=== PATIENT | female | born 1935 | race Caucasian/White ===

== ENCOUNTER 2017-11-15 08:43 | Day surgery (SDC) | payer MEDICARE, BC ==
[2017-11-15] VITALS (17 sets, daily range): BP systolic 90–180; BP diastolic 35–124
[~2017-11-15] VITALS: Ht 170.2 cm; Wt 95.5 kg
[2017-11-15] MEDS ORDERED: normal saline 1000ml 1,000 ML IV PRN (09:10)
[2017-11-15] MEDS ORDERED: ondansetron/PF 4mg/2ml inj IV PRN (09:15)
[2017-11-15] MEDS ORDERED: LOSA1TAB36 PO (09:21)
[2017-11-15] MEDS ORDERED: LEVO75TA7 PO (09:21)
[2017-11-15] MEDS ORDERED: ACET-2119 PO (09:21)
[2017-11-15 09:46] LABS: BASOPHILS % (AUTO) 0.3 % (0-1); EOSINOPHILS # (AUTO) 0.2 X10'3 (0-0.9); EOSINOPHILS % (AUTO) 1.7 % (0-6); HEMATOCRIT 40.2 % (35.0-45.0); HEMOGLOBIN 13.5 g/dl (12.0-16.0); LYMPHOCYTES # (AUTO) 1.1 X10'3 (1.1-4.8); LYMPHOCYTES % (AUTO) 9.2 % (21-51); MEAN CORPUSCULAR HEMOGLOBIN 30.2 PG (27.0-31.0); MEAN CORPUSCULAR HGB CONC 33.5 % (33.0-36.5); MEAN CORPUSCULAR VOLUME 90.3 FL (78-98); MEAN PLATELET VOLUME 8.3 FL (7.4-10.4); MONOCYTES # (AUTO) 0.9 X10'3 (0-0.9); MONOCYTES % (AUTO) 7.8 % (2-12); NEUTROPHILS # (AUTO) 9.3 X10'3 (1.8-7.7); PLATELET COUNT 407 X10'3 (140-440); RED BLOOD COUNT 4.46 X10'6 (4.20-5.60); WHITE BLOOD COUNT 11.5 X10'3 (4.5-11.0)
[2017-11-15] MEDS ORDERED: fentaNYL/PF 50MCG/1 ML 2ML syringe ONE (10:29)
[2017-11-15] MEDS ORDERED: midazolam 2 mg/2 ml injection ONE (10:29)
[2017-11-15] MEDS ORDERED: ibuprofen tablet 400 MG TABLET PO ONE (13:50)
== END 2017-11-15 15:25 | disposition home or self-care (01) ==
LOC: SSTAY O 08:43
PROVIDERS: ATTEND Radiology Diagnostic Radiology
DX: C34.11 Malignant neoplasm of upper lobe, right bronchus or lung (principal); Z79.01 Long term (current) use of anticoagulants; Z90.13 Acquired absence of bilateral breasts and nipples; Z90.710 Acquired absence of both cervix and uterus; Z88.8 Allergy status to other drugs, medicaments and biological substances; Z85.3 Personal history of malignant neoplasm of breast; Z87.891 Personal history of nicotine dependence
CPT/HCPCS: 32405; 36415; 71045; 77012; 85025; 99152; 99153; J2250; J2405; J3010; J7030